=== PATIENT | male | born 1950 ===

== ENCOUNTER 2022-12-09 18:01 | Emergency (ER) | payer MEDICARE, OTHER ==
[~2022-12-09] VITALS: Ht 175.3 cm; Wt 90.9 kg
[2022-12-09] MEDS ORDERED: METO50 PO (19:31)
[2022-12-09] MEDS ORDERED: AMLO5TAB66 PO (19:31)
[2022-12-09] MEDS ORDERED: APIX5TAB PO (19:31)
[2022-12-09] MEDS ORDERED: TELM80TA10 PO (19:31)
[2022-12-09] MEDS ORDERED: GABA-1181 PO (19:31)
[2022-12-09] MEDS ORDERED: TRAZ-252 PO (19:31)
[2022-12-09 20:20] LABS: BASOPHILS % (AUTO) 1.3 % (0.0-2.0); EOSINOPHILS % (AUTO) 2.1 % (1.0-6.0); LYMPHOCYTES # (AUTO) 0.8 K/uL (1.0-4.8); LYMPHOCYTES % (AUTO) 15.5 % (22.0-44.0); MEAN CORPUSCULAR HEMOGLOBIN 27.7 pg (26.0-34.0); MEAN CORPUSCULAR HGB CONC 33.4 G/dL (31.0-37.0); MEAN CORPUSCULAR VOLUME 83 fL (80-100); MONOCYTES # (AUTO) 0.7 K/uL (0.1-1.0); MONOCYTES % (AUTO) 13.4 % (2.0-9.0); NEUTROPHILS # (AUTO) 3.5 K/uL (1.8-7.7); NEUTROPHILS % (AUTO) 67.7 % (40.0-70.0); PLATELET COUNT (AUTO) 125 K/uL (150-450); RED BLOOD CELL COUNT(AUTO) 5.42 MIL/uL (4.50-5.90); RED CELL DISTRIBUTION WIDTH 14.1 % (11.5-14.5)
[2022-12-09 20:35] LABS: ANION GAP 8 mmol/L (8-16); CALCIUM, TOTAL 8.9 mg/dL (8.8-10.5); CARBON DIOXIDE 28 mmol/L (22-29); CHLORIDE 105 mmol/L (98-107); CREATININE 0.93 mg/dL (0.60-1.30); GLOMERULAR FILTR. RATE CALC > 60 mL/min (>60); GLUCOSE,RANDOM 82 mg/dL (70-110); POTASSIUM 3.9 mmol/L (3.5-5.1); SODIUM SERUM 141 mmol/L (136-145); UREA NITROGEN, BLOOD 12 mg/dL (7-18)
[2022-12-09] MEDS ORDERED: NITR0.4T50 SL (21:12)
[2022-12-09 21:24] VITALS: BP 146/82
== END 2022-12-09 22:00 | disposition left against medical advice (07) ==
LOC: EMS 18:05 → EDSEX 18:05 → EMS 22:00
DX: R07.89 Other chest pain (principal); I48.91 Unspecified atrial fibrillation; I10 Essential (primary) hypertension
CPT/HCPCS: 71045; 80048; 84484; 85025; 93005; 99285; 36415-L1; 36415-TC